=== PATIENT | male | born 1980 | race Caucasian/White ===

== ENCOUNTER 2022-10-15 22:45 | Emergency (ER) | payer BC, SELFPAY ==
--- NOTE | 2022-10-15 22:49 | ECG_ITS ---
Measurements Intervals [place] Rate: 145 P: 47 LA: 127 QRS: 53 QRSD: 103 T: 29 QT: 285 QTc: 443 Interpretive Statements SINUS TACHYCARDIA, ABNORMAL RHYTHM ECG NO PREVIOUS ECG AVAILABLE FOR COMPARISON Electronically Signed On 10-20-2022 11:47:25 CDT by Raman Alvarenga M.D.
[2022-10-15 23:07] VITALS: BP 148/98; PULSE 144; RESP 25; TEMP 36.6; O2SAT 99
[2022-10-15 23:15] VITALS: RESP 31
[2022-10-15 23:21] LABS: Basophils Absolute Auto 0.1 K/mm3 (0.0-0.1); Basophils Percent Auto 0.8 % (0.2-1.2); Eosinophils Absolute Auto 0.1 K/mm3 (0-0.3); Eosinophils Percent Auto 1.6 % (0-4.4); Hematocrit 47.5 % (42.0-52.0); Hemoglobin 16.3 g/dL (14.0-18.0); Immature Granulocyte Absolute 0.01 K/mm3 (0.00-0.031); Immature Granulocyte Percent A 0.1 % (0-0.5); Lymphocytes Absolute Auto 3.24 K/mm3 (0.9-3.2); Lymphocytes Percent Auto 40.9 % (18.3-44.2); Mean Corpuscular HGB Conc 34.3 g/dl (32-36); Mean Corpuscular Hemoglobin 31.2 pg (26-34); Mean Platelet Volume 9.9 fl (7.4-10.4); Monocytes Absolute Auto 0.8 K/mm3 (0.1-0.6); Monocytes Percent Auto 10.2 % (2.6-8.5); Neutrophils Absolute Auto 3.7 K/mm3 (1.3-6.7); Neutrophils Percent Auto 46.4 % (45.5-73.1); Platelet Count Result 247 k/mm3 (150-375); Red Blood Count 5.22 M/mm3 (4.6-6.20); Red Cell Distribution Width 12.1 % (11.5-14.5); White Blood Count 7.9 K/mm3 (4.5-10.0)
--- NOTE | 2022-10-15 23:25 | PC.NURSE ---
This RN assumed care of patient. This RN took patient report from ROSHNI Morales.
[2022-10-15 23:27] VITALS: PULSE 134; RESP 23; O2SAT 93
[2022-10-15 23:32] LABS: Alanine Aminotransferase 38 U/L (6-50); Albumin Level 4.7 g/dL (3.5-5.1); Alkaline Phosphatase 41 U/L (38-126); Anion Gap 14 mmol/L (8-16); Aspartate Amino Transferase 45 U/L (17-59); Bilirubin,Total 0.4 mg/dL (0.2-1.3); Blood Urea Nitrogen 16 mg/dL (9-20); Calcium 8.9 mg/dL (8.4-10.2); Carbon Dioxide 21 mmol/L (22-30); Chloride 106 mmol/L (98-107); Estimated CRCL calculation 67 ml/min; Estimated Glomerular Filt Rate 51; Glucose 130 mg/dL (65-110); Sodium 141 mmol/L (137-145)
[2022-10-15 23:33] VITALS: PULSE 137; RESP 21; O2SAT 86
[2022-10-15 23:34] LABS: Lactic Acid Reflex 4.1 mmol/L (0.7-2.0)
--- NOTE | 2022-10-15 23:35 | ED.GENADULT ---
HPI - General Adult General Chief complaint: Overdose Stated complaint: ALLERGIC REACTION TO COCAINE Time Seen by Provider: 10/15/22 22:47 History of Present Illness HPI narrative: 42-year-old male presented the emergency department for evaluation for tachycardia not feeling well after taking cocaine. Patient states that he has not used cocaine for approximately 20 years. Patient states he was at a [employer] and someone offered him cocaine, patient suspects that he did about 1/10 of a gram of cocaine but then had increased heart rate and anxiety that felt beyond what he was expecting or had been used to from his previous cocaine use. Upon arrival to emergency department patient states that the symptoms are beginning to improve. Patient denies any associated shortness of breath or chest pain. Patient denies any prior cardiac history. Related Data Allergies Allergy/AdvReac Type Severity Reaction Status Date / Time levofloxacin [From Levaquin] Allergy Anaphylactic Verified 10/15/22 23:14 Shock Review of Systems Review of Systems: All systems reviewed & are unremarkable except as noted in HPI and below Exam Narrative: APPEARANCE: Well appearing, no pain, no distress, well-nourished. HEAD: normocephalic, atraumatic. EYES: PERRLA/EOMI, conjunctivae clear. NOSE: Normal no drainage EARS:TMS clear with good light reflex. THROAT: Pharynx clear, no exudate. NECK: Supple. No adenopathy, no masses. RESPIRATORY: Airway patent, respirations nonlabored. Clear to auscultation bilaterally, no rales, rhonchi, wheezing. CARDIOVASCULAR: Sinus tachycardia ABDOMINAL: Soft, nontender, nondistended, normal bowel sounds MUSCULOSKELETAL: Moves all extremities. Strength/ROM intact, No edema, No calf tenderness. NEURO: Alert. Cranial nerves II through XII intact. Grossly intact SKIN: Warm, dry. Normal Color Course Course Emergency Course: 42-year-old male present ED for evaluation of tachycardia. Patient had a heart rate in the 150s was treated with fluids and Ativan. Patient is afebrile with no leukocytosis and a stable hemoglobin. Patient's creatinine was 1.5 and patient's lactic acid was 4.1. Patient states he feels improved. Patient's heart rate has less than 100 at time of discharge. Patient is saturating well on room air. Patient was able to ambulate without any difficulty. Patient denies any chest pain or shortness of breath. Patient was going to provide a urine sample and then dumped it down the toilet. Patient was encouraged of close follow-up with his primary care physician and to refrain from cocaine use. Vital Signs Vital signs: Vital Signs Temperature 98 F 10/15/22 23:07 Pulse Rate 144 H 10/15/22 23:07 Respiratory Rate 25 H 10/15/22 23:07 Blood Pressure 148/98 H 10/15/22 23:07 Pulse Oximetry 99 10/15/22 23:07 Oxygen Delivery Room Air 10/15/22 23:07 Temperature 98 F 10/15/22 23:07 Pulse Rate 98 10/16/22 01:51 Respiratory Rate 22 H 10/16/22 01:51 Blood Pressure 142/80 H 10/16/22 00:46 Pulse Oximetry 100 10/16/22 02:31 Oxygen Delivery Room Air 10/16/22 02:31 Oxygen Flow Rate 3 10/16/22 01:11 Medical Decision Making Differential Diagnosis Differential Diagnosis: Tachycardia, accidental overdose, meth ingestion, cocaine ingestion Vital Signs Vital Signs: Vital Signs Temperature 98 F 10/15/22 23:07 Pulse Rate 144 H 10/15/22 23:07 Respiratory Rate 25 H 10/15/22 23:07 Blood Pressure 148/98 H 10/15/22 23:07 Pulse Oximetry 99 10/15/22 23:07 Oxygen Delivery Room Air 10/15/22 23:07 Temperature 98 F 10/15/22 23:07 Pulse Rate 98 10/16/22 01:51 Respiratory Rate 22 H 10/16/22 01:51 Blood Pressure 142/80 H 10/16/22 00:46 Pulse Oximetry 100 10/16/22 02:31 Oxygen Delivery Room Air 10/16/22 02:31 Oxygen Flow Rate 3 10/16/22 01:11 Lab Data Lab results reviewed: Yes I reviewed the patient's lab results. 10/15/22
[2022-10-15] MEDS: SODIUM CHLORIDE 0.9% IV 1,000 ML 999 ML IV CONT (23:46)
[2022-10-15 23:50] VITALS: PULSE 150; RESP 28; O2SAT 97
[2022-10-16] VITALS (8 sets, daily range): BP systolic 142; BP diastolic 80; PULSE 98–128; RESP 18–25; O2SAT 88–100
[2022-10-16] MEDS: SODIUM CHLORIDE 0.9% IV 1,000 ML 999 ML IV CONT (01:12)
[2022-10-16 02:19] LABS: Reflex Lactic Acid Yes or No Add Lactic
== END 2022-10-16 02:16 | disposition home or self-care (01) ==
PROVIDERS: Emergency Provider Emergency Medicine
DX: F14.129 Cocaine abuse with intoxication, unspecified (principal); R00.0 Tachycardia, unspecified; R94.31 Abnormal electrocardiogram [ECG] [EKG]
CPT/HCPCS: 36415; 80053; 83605; 85025; 93005; 96360; 96361; 99283; J2060; J7030